=== PATIENT | female | born 1985 | race Caucasian/White ===

== ENCOUNTER 2017-05-02 13:10 | Outpatient (CLI) | payer MEDICAID ==
[~2017-05-02] VITALS: Ht 160 cm; Wt 93.1 kg
[2017-05-02 13:46] LABS: ADD SCAN DIFF NO
[2017-05-02 13:49] LABS: ABNORMAL IP MESSAGE 1; BASOPHILS % 0.3 % (0.0-2.0); EOSINOPHILS # 0.2 10^3/ul (0.0-0.5); EOSINOPHILS % 1.8 % (0.0-7.0); HEMATOCRIT 36.3 % (37.0-47.0); HEMOGLOBIN 11.7 g/dl (12.0-16.0); LYMPHOCYTES # 1.7 10^3/ul (0.8-2.9); LYMPHOCYTES % 15.8 % (15.0-51.0); MEAN CORPUSCULAR HEMOGLOBIN 27.7 pg (29.0-33.0); MEAN CORPUSCULAR HGB CONC 32.2 g/dl (32.0-37.0); MEAN CORPUSCULAR VOLUME 85.8 fl (82.0-101.0); MEAN PLATELET VOLUME 13.1 fl (7.4-10.4); MONOCYTE # 0.9 10^3/ul (0.3-0.9); MONOCYTES % 7.8 % (0.0-11.0); NEUTROPHILS % 73.5 % (39.0-77.0); PLATELET COUNT 155 10^3/UL (140-415); RED BLOOD COUNT 4.23 10^6/ul (4.20-5.40); RED CELL DISTRIBUTION WIDTH 14.8 % (11.5-14.5); WHITE BLOOD COUNT 10.9 10^3/ul (4.8-10.8)
--- NOTE | 2017-05-02 13:55 | RADRPT ---
PROCEDURE: OB ultrasound for biophysical profile CLINICAL INDICATION: Biophysical profile. . Hypertension TECHNIQUE: Multiple sonographic images of the pelvis were obtained. Transabdominal views are obta ined. COMPARISON: None FINDINGS: Single intrauterine gestation. Presentation: Cephalic. Placenta: Posterior No evidence of placental abruption. No evidence of placenta previa. breathing movement = 2/2 tone = 2/2 motion = 2/2 CORONA = 2/2 CORONA = 8.1 cm heart rate: 138 beats per minute IMPRESSION: Single intrauterine gestation. Biophysical profile 06/14 RPTAT: AADD .Edgar Aponte MD, MD Date Time Electronically viewed and signed by .Edgar Aponte MD, on 05/02/2017 13:54 .B/
--- NOTE | 2017-05-02 14:00 | RADRPT ---
PROCEDURE: Obstetrical ultrasound CLINICAL INDICATION: HIGH BLOOD PRESSURE TECHNIQUE: Multiple sonographic images of the pelvis were obtained. The images were reviewed on a PACS workstation. COMPARISON: None FINDINGS: The cervix is not well visualized. There is a single viable intrauterine gestation. Cardiac activity is present with 144 beats per minute. There is a vertex presentation. The placenta is posterior. There is no evidence for an abruption or placenta previa. There is a subjectively normal amount of amniotic fluid. Measurements were made in order to determine age. The results are as follows (cm): BPD =9.03 HC =31.98 AC =33.30 FL =6.84 Estimated gestational age by ultrasound of approximately 36 weeks, 2 days. The estimated date of delivery by ultrasound is 05/28/2017. Estimated gestational age by LMP of approximately 36 weeks, 4 days. The estimated date of delivery by LMP is 05/26/2017. EFW = 2966 grams (53rd percentile) IMPRESSION: Single viable intrauterine gestation of approximately 36 weeks, 2 days . The estimated date of delivery is 05/28/2017 . Dating by ultrasound is within 2 days of dating by LMP. Cephalic presentation. Estimated weight is in the 53rd percentile. RPTAT: EE Physician Juan José Date Time Electronically viewed and signed by Physician Juan José on 05/02/2017 13:59 VAHE
[2017-05-02 14:06] LABS: ALBUMIN 3.5 g/dl (3.3-4.9); ALBUMIN/GLOBULIN RATIO 1.34; BILIRUBIN,INDIRECT 0.1 mg/dl (0-1.1); BILIRUBIN,TOTAL 0.1 mg/dl (0.2-1.3); CALCIUM 8.7 mg/dl (8.4-10.2); CREATININE 0.66 mg/dl (0.44-1.00); POTASSIUM 3.8 mmol/L (3.5-5.1); TOTAL PROTEIN 6.1 g/dl (6.1-8.1); URIC ACID 5.4 mg/dl (3.1-7.9)
[2017-05-02 14:10] LABS: ADD UMIC YES; UR ASCORBIC ACID 20 mg/dL (NEGATIVE); UR BACTERIA FEW /HPF (NONE SEEN); UR BILIRUBIN (Dip) NEGATIVE (NEGATIVE); UR BLOOD (Dip) NEGATIVE (NEGATIVE); UR CLARITY CLOUDY (CLEAR); UR COLOR AMBER (YELLOW); UR GLUCOSE (Dip) NEGATIVE (NEGATIVE); UR KETONES (Dip) TRACE mg/dL (NEGATIVE); UR LEUKOCYTE ESTERASE (Dip) TRACE Leu/ul (NEGATIVE); UR MUCUS FEW /HPF (NONE SEEN); UR NITRITE (Dip) NEGATIVE (NEGATIVE); UR RBC 6 /HPF (0-5); UR SQUAMOUS EPITHELIAL CELL MANY /HPF (FEW); UR TOTAL PROTEIN (Dip) 1+ mg/dl (NEGATIVE); UR UROBILINOGEN (Dip) NEGATIVE (NEGATIVE)
[2017-05-02 14:12] VITALS: Ht 160 cm; Wt 93.1 kg
[2017-05-02] MEDS ORDERED: PRENAT PO (14:12)
[2017-05-02 14:13] VITALS: BP 124/69; PULSE 90; RESP 18
--- NOTE | 2017-05-02 15:20 | TRIAGE ---
OB Triage Datetime Report Generated by CPN: 05/02/2017 15:20 Datetime: 05/02/2017 14:30 Stage of : OB Triage Maternal Assessment Level of Consciousness: Fully Conscious Labor Evaluation Frequency: NONE Monitor Mode: External Resting Tone [place]: Relaxed Heart Rate FHR Baseline Rate: 145 Monitor Mode: External US Variability: Moderate 6-25 bpm Accelerations: 15X15 Decelerations: None Pain Assessment Pain Scale: 0 Pain Goal: 3 Vaginal Exam Membrane Status: Intact Vaginal Bleeding: None Datetime: 05/02/2017 14:09 Stage of : OB Triage Maternal Assessment Level of Consciousness: Fully Conscious DTR's/Clonus: DTRs 2+; No Clonus Headache: Denies Blurred Vision: No Respiratory Effort: Unlabored; Regular Rhythm; Equal Expansion Breath Sounds, Left: Clear and Equal Breath Sounds, Right: Clear and Equal Nausea/Vomiting: Denies RUQ Epigastric Pain: Denies Lower Extremities Edema: Bilateral Lower Extremities Degree: 2+ Upper Extremities Edema: None Degree: None Facial Edema: None Temperature Route: Axillary Fall Risk Assessment History of Falling: (0) No Secondary Diagnosis: (0) No Ambulatory Aid: (0) Bedrest/Nurse Assist IV Therapy: (0) No Gait: (0) Normal/Bedrest/Immobile Mental Status: (0) Oriented to Own Ability Fall Score: 0 Fall Risk Score Definition: No Risk: No action required Datetime: 05/02/2017 14:05 Time of Arrival: 05/02/2017 13:07 EGA: 36.1 Arrived By: Ambulatory Arrived From: Office Chief Complaint: PT SENT FROM CLINIC FOR EVAL. OF HBP Movement: Present Contractions: Denies/Absent Rupture of Membranes: Denies Vaginal Bleeding: None Vaginal Discharge: Denies Recent Sexual Intercouse: Denies Abdominal Trauma: Not Applicable Patient Complaints: None Time Provider Notified: 05/02/2017 13:07 Provider Notified: RENUKA Initial Plan: BPP/EFW/UA/CBC/CMP/ Datetime: 05/02/2017 13:22 Monitor Mode: External Monitor Mode: External US
--- NOTE | 2017-05-02 15:50 | QN ---
Documentation Comment iup 36 weeks no symptoms high BP vss exam wnl labs wnl a/p iup 36 weeks high BP resolved dc home CHARITY YOUNG MD May 02, 2017 15:50
== END 2017-05-02 15:26 | disposition home or self-care (01) ==
LOC: L-D 13:10 → OBT 13:10
PROVIDERS: ATTEND Obstetrics & Gynecology
DX: O26.893 Other specified pregnancy related conditions, third trimester (principal); R03.0 Elevated blood-pressure reading, without diagnosis of hypertension; Z3A.36 36 weeks gestation of pregnancy
CPT/HCPCS: 36415; 76815; 76818; 80053; 81001; 84560; 85025; Z7500; G0463

== ENCOUNTER 2017-05-04 09:59 | Outpatient (CLI) | payer MEDICAID ==
[~2017-05-04] VITALS: Ht 160 cm; Wt 93.2 kg
[~2017-05-04 09:59] MED LIST: PRENAT PO
[2017-05-04 10:14] VITALS: Ht 160 cm; Wt 93.2 kg
[2017-05-04 10:15] VITALS: BP 133/77; PULSE 93
[2017-05-04] MEDS ORDERED: AMOX500T PO (10:17)
[2017-05-04 11:11] LABS: SCRET 0.57 mg/dl (0.44-1.00)
== END 2017-05-04 12:40 | disposition home or self-care (01) ==
LOC: OBT 09:59 → L-D 10:00 → OBT 12:40
PROVIDERS: ATTEND Obstetrics & Gynecology
DX: O26.893 Other specified pregnancy related conditions, third trimester (principal); R03.0 Elevated blood-pressure reading, without diagnosis of hypertension; Z3A.36 36 weeks gestation of pregnancy
CPT/HCPCS: 82565; 82575; 84156; Z7500; G0463

== ENCOUNTER 2017-05-17 10:50 | Outpatient (CLI) | payer MEDICAID ==
--- NOTE | 2017-05-04 14:45 | PN ---
Triage Information Date/Time 05/04/2017 Weeks of Gestation 36 weeks and 3 days : 5 Para: 1 Diabetes: none Hypertention: induced Additional information 31 years old with IUP at 36 weeks and 3 days with Gestational HTN , here today for follow up of 24 hour urine protein and for NST. Has been seen about 2 days ago in Triage for r/o PIH with headache and blurred vision that currently resolved. Ruled out for PIH Today denies any GRANDE, Blurred vision or epigastric pain. Denies any LOF, vaginal bleeding or decreased movement, Objective Heart Rate: 140's Heart Rate Comments Cat 1 Contractions: None Assessment/Plan Patient's blood pressures 130's/70's She denied any symptoms 24 hour urine protein < 300 mg Currently no evidence of PIH Assessment IUP at 36 weeks and 3 days Gestational HTN FHT Cat 1 DC home Follow up with office in 2 days Strict PTL precaution and preclampsia precaution was given. LUIS ALBERTO ARMSTRONG MD May 04, 2017 14:45
[~2017-05-17] VITALS: Ht 160 cm; Wt 91.7 kg
[~2017-05-17 10:50] MED LIST changes: +AMOX500T PO
[2017-05-17 11:29] VITALS: BP 132/62; PULSE 72; RESP 17; Ht 160 cm; Wt 91.7 kg
[2017-05-17 11:43] LABS: ADD SCAN DIFF NO
[2017-05-17 11:57] LABS: ABNORMAL IP MESSAGE 1; BASOPHILS % 0.3 % (0.0-2.0); EOSINOPHILS # 0.2 10^3/ul (0.0-0.5); EOSINOPHILS % 2.4 % (0.0-7.0); HEMATOCRIT 36.6 % (37.0-47.0); LYMPHOCYTES # 1.8 10^3/ul (0.8-2.9); LYMPHOCYTES % 18.6 % (15.0-51.0); MEAN CORPUSCULAR HEMOGLOBIN 27.8 pg (29.0-33.0); MEAN CORPUSCULAR HGB CONC 32.8 g/dl (32.0-37.0); MEAN CORPUSCULAR VOLUME 84.9 fl (82.0-101.0); MEAN PLATELET VOLUME 13.5 fl (7.4-10.4); MONOCYTE # 0.7 10^3/ul (0.3-0.9); MONOCYTES % 7.7 % (0.0-11.0); NEUTROPHIL # 6.6 10^3/ul (1.6-7.5); NEUTROPHILS % 70.3 % (39.0-77.0); PLATELET COUNT 159 10^3/UL (140-415); RED BLOOD COUNT 4.31 10^6/ul (4.20-5.40); RED CELL DISTRIBUTION WIDTH 15.2 % (11.5-14.5); WHITE BLOOD COUNT 9.4 10^3/ul (4.8-10.8)
[2017-05-17 12:25] LABS: ADD UMIC YES; UR ASCORBIC ACID NEGATIVE (NEGATIVE); UR BACTERIA FEW /HPF (NONE SEEN); UR BILIRUBIN (Dip) NEGATIVE (NEGATIVE); UR BLOOD (Dip) NEGATIVE (NEGATIVE); UR CLARITY CLOUDY (CLEAR); UR COLOR AMBER (YELLOW); UR GLUCOSE (Dip) NEGATIVE (NEGATIVE); UR KETONES (Dip) TRACE mg/dL (NEGATIVE); UR LEUKOCYTE ESTERASE (Dip) NEGATIVE Leu/ul (NEGATIVE); UR MUCUS FEW /HPF (NONE SEEN); UR NITRITE (Dip) NEGATIVE (NEGATIVE); UR RBC 3 /HPF (0-5); UR SPECIFIC GRAVITY (Dip) 1.027 (1.003-1.030); UR SQUAMOUS EPITHELIAL CELL MANY /HPF (FEW); UR TOTAL PROTEIN (Dip) 1+ mg/dl (NEGATIVE); UR UROBILINOGEN (Dip) NEGATIVE (NEGATIVE)
--- NOTE | 2017-05-17 13:14 | PN ---
Triage Information Date/Time Weeks of Gestation 38 weeks : 5 Para: 1 Diabetes: none Hypertention: none Objective Vital Signs Date Time Temp Pulse Resp B/P Pulse Ox O2 Delivery O2 Flow Rate FiO2 05/17/17 11:29 97.8 72 17 132/62 Room Air Heart Rate: 130's Heart Rate Comments Category I Contractions: None Results/Medications Result Diagram: 05/17/17 1123 Results 24 hrs Laboratory Tests Test 05/17/17 11:00 05/17/17 11:23 Urine Color NENA Urine Clarity CLOUDY A Urine pH 5.0 Urine Specific [place] 1.027 Urine Ketones TRACE A Urine Nitrite NEGATIVE Urine Bilirubin NEGATIVE Urine Urobilinogen NEGATIVE Urine Leukocyte Esterase NEGATIVE Urine Microscopic RBC 3 Urine Microscopic WBC 6 H Urine Squamous Epithelial Cells MANY A Urine Calcium Oxalate Crystals FEW A Urine Bacteria FEW A Urine Mucus FEW A Urine Hemoglobin NEGATIVE Urine Glucose NEGATIVE Urine Total Protein 1+ H White Blood Count 9.4 Red Blood Count 4.31 Hemoglobin 12.0 Hematocrit 36.6 L Mean Corpuscular Volume 84.9 Mean Corpuscular Hemoglobin 27.8 L Mean Corpuscular Hemoglobin Concent 32.8 Red Cell Distribution Width 15.2 H Platelet Count 159 Mean Platelet Volume 13.5 H Neutrophils % 70.3 Lymphocytes % 18.6 Monocytes % 7.7 Eosinophils % 2.4 Basophils % 0.3 Nucleated Red Blood Cells % 0.0 Neutrophils # 6.6 Lymphocytes # 1.8 Monocytes # 0.7 Eosinophils # 0.2 Basophils # 0.0 Nucleated Red Blood Cells # 0.0 Assessment/Plan Pelvic Pressure Cervix closed D/C home NATALIIA GRAYSON MD May 17, 2017 13:14
--- NOTE | 2017-05-17 13:44 | TRIAGE ---
OB Triage Datetime Report Generated by CPN: 05/17/2017 13:43 Datetime: 05/17/2017 13:01 Labor Evaluation Frequency: 0 Monitor Mode: External Pattern: Normal: <= 5 Contractions in 10 Minutes Resting Tone [place]: Relaxed Heart Rate FHR Baseline Rate: 135 Monitor Mode: External US FHR Baseline Changes: No Baseline Change Variability: Moderate 6-25 bpm Accelerations: 15X15 Decelerations: None Category: Category I Pain Assessment Pain Scale: 0 Pain Presence: None/Denies Pain Type: N/A Datetime: 05/17/2017 12:58 Vaginal Exam Dilatation (cms): 0.0 Effacement (%): 0 Station: -3 Exam By: DR DELSHAD Vaginal Bleeding: None Cervix, Consistency: Moderate Cervix, Position: Posterior Datetime: 05/17/2017 12:00 Labor Evaluation Frequency: 0 Pattern: Normal: <= 5 Contractions in 10 Minutes Resting Tone [place]: Relaxed Heart Rate FHR Baseline Rate: 135 Monitor Mode: External US FHR Baseline Changes: No Baseline Change Variability: Moderate 6-25 bpm Accelerations: 15X15 Decelerations: None Category: Category I Pain Assessment Pain Scale: 0 Pain Presence: None/Denies Pain Type: N/A Datetime: 05/17/2017 11:34 Vaginal Exam Dilatation (cms): 0.0 Effacement (%): 0 Station: -3 Exam By: RIZWAN Vaginal Bleeding: None Cervix, Consistency: Moderate Cervix, Position: Posterior Datetime: 05/17/2017 11:10 Assessment Type: Triage Maternal Assessment Level of Consciousness: Fully Conscious DTR's/Clonus: DTRs 2+; No Clonus Headache: Denies Blurred Vision: No Respiratory Effort: Unlabored; Regular Rhythm Breath Sounds, Left: Clear and Equal Breath Sounds, Right: Clear and Equal Nausea/Vomiting: Denies RUQ Epigastric Pain: Denies Lower Extremities Edema: Bilateral Lower Extremities Degree: 1+ Upper Extremities Edema: None Degree: None Facial Edema: None Fall Risk Assessment History of Falling: (0) No Secondary Diagnosis: (0) No Ambulatory Aid: (0) Bedrest/Nurse Assist IV Therapy: (0) No Gait: (0) Normal/Bedrest/Immobile Mental Status: (0) Oriented to Own Ability Fall Score: 0 Fall Risk Score Definition: No Risk: No action required Datetime: 05/17/2017 11:07 Pain Assessment Pain Scale: 5 Pain Presence: Intermittent Pain Type: Cramping; Sharp Pain Location: Abdomen; Perineum Pain Relief Measures: Comfort Measures Datetime: 05/17/2017 10:45 Time of Arrival: 05/17/2017 10:45 EGA: 38.2 Arrived By: Ambulatory Arrived From: Home Chief Complaint: PT PRESENTS TO TRIAGE COMPLAINING OF SHARP PAIN IN VAGINA X3 DAYS AND LOWER ABDOM INAL CRAMPING. PATIENT REPORTS URINARY FREQUENCY WELL Movement: Present Contractions: Denies/Absent Rupture of Membranes: Denies Vaginal Bleeding: None Vaginal Discharge: Denies Recent Sexual Intercouse: Denies Abdominal Trauma: Not Applicable Patient Complaints: Cramping; Urinary Frequency Time Provider Notified: 05/17/2017 11:18 Provider Notified: DELSHAD Initial Plan: EFM/UA/CBC/VAGINAL EXAM Datetime: 05/04/2017 11:21 Stage of : OB Triage Datetime: 05/04/2017 11:20 Stage of : OB Triage Datetime: 05/04/2017 11:16 Labor Evaluation Frequency: 0 Monitor Mode: External Resting Tone [place]: Relaxed Heart Rate FHR Baseline Rate: 135 Monitor Mode: External US Variability: Moderate 6-25 bpm Accelerations: 15X15 Decelerations: None Category: Category I Pain Assessment Pain Scale: 0 Pain Presence: None/Denies Pain Type: N/A Pain Goal: 3 Pain Relief Measures: Comfort Measures Datetime: 05/04/2017 10:32 Stage of : OB Triage Datetime: 05/04/2017 10:18 Stage of : OB Triage Assessment Type: Triage Maternal Assessment Level of Consciousness: Fully Conscious DTR's/Clonus: DTRs 2+; No Clonus Headache: Denies Blurred Vision: No Respiratory Effort: Unlabored; Regular Rhythm; Equal Expansion Breath Sounds, Left: Clear and Equal Breath Sounds, Right: Clear and Equal Nausea/Vomiting: Denies RUQ Epigastric Pain: Denies Facial Edema: None Temperature Route: Axillary Fall Risk Assessment History of Falling: (0) No Secondary Diagnosis: (0) No Ambulatory Aid: (0) Bedrest/Nurse Assist IV Therapy: (0) No Gait: (0) Normal/Bedrest/Immobile Mental Status: (0) Oriented to Own Ability Fall Score: 0 Fall Risk Score Definition: No Risk: No action required Labor Evaluation Frequency: 0 Monitor Mode: External Pattern: Normal: <= 5 Contractions in 10 Minutes Resting Tone [place]: Relaxed Heart Rate FHR Baseline Rate: 135 Monitor Mode: External US Variability: Moderate 6-25 bpm Decelerations: None Category: Category II Pain Assessment Pain Scale: 0 Pain Presence: None/Denies Pain Type: N/A Pain Goal: 3 Pain Relief Measures: Comfort Measures Datetime: 05/04/2017 10:17 Time of Arrival: 05/04/2017 09:53 EGA: 36.3 Arrived By: Ambulatory Chief Complaint: follow up pih, 24 hour urine return, denies leaking or bleeding, occas uc's appr ox 2/hour Movement: Present Contractions: Occasional Rupture of Membranes: Denies Vaginal Bleeding: None Vaginal Discharge: Denies Recent Sexual Intercouse: Denies Abdominal Trauma: Not Applicable Patient Complaints: Cramping Time Provider Notified: 05/04/2017 10:33 Provider Notified: DELSHAD Initial Plan: monitor, 24 hours urine, creatine Datetime: 05/02/2017 14:09 Fall Score: 0 Fall Risk Score Definition: No Risk: No action required Datetime: 05/02/2017 14:05 EGA: 36.1
== END 2017-05-17 13:42 | disposition home or self-care (01) ==
LOC: OBT 10:50 → L-D 10:51 → OBT 13:42
PROVIDERS: ATTEND Obstetrics & Gynecology
DX: O13.3 Gestational [pregnancy-induced] hypertension without significant proteinuria, third trimester (principal); O26.893 Other specified pregnancy related conditions, third trimester; Z3A.36 36 weeks gestation of pregnancy
CPT/HCPCS: 36415; 81001; 85025; Z7500; G0463

== ENCOUNTER 2017-05-22 09:45 | Inpatient (IN) | payer MEDICAID ==
[~2017-05-22] VITALS: Ht 160 cm; Wt 92.7 kg
[~2017-05-22 09:45] MED LIST changes: -AMOX500T PO; +LIDOCAINE 2% (SDV) 5 ML INJ ONE
[2017-05-22 10:10] VITALS: Ht 160 cm; Wt 92.7 kg
[2017-05-22 10:11] VITALS: BP 126/76; PULSE 75; RESP 20
[2017-05-22] MEDS ORDERED: CEFAZOLIN 2 GM/50 ML (PMX) 50 ML IV SCH (10:30)
[2017-05-22] MEDS ORDERED: MISOPROSTOL 200 MCG TAB PR PRN ×2 (10:30→18:30)
[2017-05-22] MEDS ORDERED: CARBOPROST 250 MCG INJ IM PRN ×2 (10:30→18:30)
[2017-05-22] MEDS ORDERED: METHYLERGONOVINE 0.2 MG INJ IM PRN ×2 (10:30→18:30)
[2017-05-22] MEDS ORDERED: OXYTOCIN 30 UNITS/LR 500 ML IV PRN ×2 (10:30→18:30)
[2017-05-22] MEDS: LACTATED RINGER'S 1,000 ML IV SCH ×3 (10:39→18:23)
[2017-05-22 11:37] LABS: ADD SCAN DIFF NO
[2017-05-22 11:42] LABS: ABNORMAL IP MESSAGE 1; BASOPHILS % 0.4 % (0.0-2.0); EOSINOPHILS # 0.1 10^3/ul (0.0-0.5); EOSINOPHILS % 1.4 % (0.0-7.0); HEMATOCRIT 37.1 % (37.0-47.0); HEMOGLOBIN 11.9 g/dl (12.0-16.0); LYMPHOCYTES # 1.9 10^3/ul (0.8-2.9); LYMPHOCYTES % 18.5 % (15.0-51.0); MEAN CORPUSCULAR HEMOGLOBIN 27.5 pg (29.0-33.0); MEAN CORPUSCULAR HGB CONC 32.1 g/dl (32.0-37.0); MEAN CORPUSCULAR VOLUME 85.9 fl (82.0-101.0); MEAN PLATELET VOLUME 13.8 fl (7.4-10.4); MONOCYTE # 0.5 10^3/ul (0.3-0.9); MONOCYTES % 4.8 % (0.0-11.0); NEUTROPHIL # 7.4 10^3/ul (1.6-7.5); NEUTROPHILS % 74.3 % (39.0-77.0); PLATELET COUNT 142 10^3/UL (140-415); RED BLOOD COUNT 4.32 10^6/ul (4.20-5.40); RED CELL DISTRIBUTION WIDTH 15.3 % (11.5-14.5)
[2017-05-22] MEDS ORDERED: CITRIC ACID/NA CITRATE 30 ML CUP ONE (11:44)
[2017-05-22] MEDS ORDERED: FAMOTIDINE 20 MG INJ ONE (11:45)
[2017-05-22] MEDS ORDERED: CITRIC ACID/NA CITRATE 30 ML CUP PO PRN (12:00)
[2017-05-22] MEDS ORDERED: FAMOTIDINE 20 MG INJ IV ONE (12:00)
[2017-05-22] MEDS ORDERED: LACTATED RINGER'S 1,000 ML IV ONE (12:00)
[2017-05-22 12:02] LABS: INR 1.04; PROTIME 13.6 Sec (12.2-14.2); PT RATIO 1.1
[2017-05-22 12:03] LABS: PARTIAL THROMBOPLASTIN TIME 26.9 Sec (25.0-35.0)
[2017-05-22] MEDS ORDERED: ONDANSETRON 4 MG INJ IV STA (12:44)
[2017-05-22] MEDS ORDERED: ONDANSETRON 4 MG INJ ONE (12:46)
[2017-05-22] MEDS ORDERED: morphine SULFATE/PF (10 MG/10 ML) INJ ONE (12:52)
[2017-05-22] MEDS ORDERED: METOCLOPRAMIDE 10 MG INJ ONE (12:54)
[2017-05-22] MEDS ORDERED: EPHEDrine SULFATE 50 MG/5 ML SYG ONE (12:54)
[2017-05-22] MEDS ORDERED: PHENYLephrine (100 MCG/ML) 5ML SYG ONE (12:55)
[2017-05-22] MEDS ORDERED: DEXAMETHASONE 4 MG/ML 1 ML INJ ONE (12:56)
--- NOTE | 2017-05-22 13:51 | HP ---
Date/Time of Note Date/Time of Note DATE: 05/22/17 TIME: 13:48 OB - History Hx of Present Chief Complaint: scheduled Estimated Due Date: May 29, 2017 : 5 Para: 1 Spontaneous : 0 Therapeutic : 3 Care: Good Care Ultrasounds: Normal mid trimester US Obstetrical Complications: None Medical Complications: None Past Family/Social History * Past Medical, Surgical, Family and Obstetric Histories reviewed from chart. GBS Status: Negative OB Admission Exam Vital Signs Vital Signs Vital Signs Date Time Temp Pulse Resp B/P Pulse Ox O2 Delivery O2 Flow Rate FiO2 05/22/17 10:11 98.5 75 20 126/76 99 Room Air Physical Exam HEENT: WNL Heart: Rhythm Normal Lungs: Clear Abdomen: WNL Extremities: Normal Heart Rate: 130's Accelerations: Accelerations Present Decelerations: No Decelerations Last 72 hours Lab Results CBC & BMP 05/22/17 10:30 OB Assessment/Plan Reason for admission: section Other Assessment: at 39 weeks with previous Plan: Section NATALIIA GRAYSON MD May 22, 2017 13:50
[2017-05-22] MEDS ORDERED: LIDOCAINE 2%/EPI 30 ML INJ ONE (14:06)
[2017-05-22] MEDS ORDERED: OXYTOCIN 10 UNIT INJ ONE (14:16)
[2017-05-22] MEDS ORDERED: DIPHENHYDRAMINE 50 MG INJ IV PRN (17:30)
[2017-05-22] MEDS ORDERED: PROCHLORPERAZINE 10 MG INJ IV PRN (17:30)
[2017-05-22] MEDS ORDERED: ONDANSETRON 4 MG INJ IV PRN (17:30)
[2017-05-22] MEDS ORDERED: HYDROmorphONE 1 MG/ML SYG IV PRN (17:30)
[2017-05-22] MEDS ORDERED: NALOXONE (0.4 MG/ML) INJ IV PRN (17:30)
[2017-05-22] MEDS: KETOROLAC 30 MG INJ IV PRN (17:41)
[2017-05-22 18:15] VITALS: BP 124/57; PULSE 60; RESP 18
[2017-05-22] MEDS ORDERED: LANOLIN 7 GM TUBE TOP PRN (18:30)
[2017-05-22] MEDS: OXYTOCIN 30 UNITS/LR 500 ML IV SCH ×2 (18:31→23:02)
[2017-05-22 20:05] VITALS: BP 118/70; PULSE 59; RESP 19
[2017-05-22] MEDS: SENNA/DOCUSATE NA (8.6MG/50MG) TAB PO SCH (21:30)
[2017-05-23 00:04] VITALS: BP 118/70; PULSE 76; RESP 17
[2017-05-23] MEDS: LACTATED RINGER'S 1,000 ML IV SCH ×3 (03:09→18:23)
[2017-05-23] MEDS: KETOROLAC 30 MG INJ IV PRN ×2 (03:10→13:52)
[2017-05-23 03:50] VITALS: BP 129/58; PULSE 70; RESP 17
[2017-05-23 07:23] LABS: ADD SCAN DIFF NO
[2017-05-23 07:29] LABS: ABNORMAL IP MESSAGE 1; BASOPHILS % 0.4 % (0.0-2.0); EOSINOPHILS # 0.1 10^3/ul (0.0-0.5); EOSINOPHILS % 0.5 % (0.0-7.0); HEMATOCRIT 31.5 % (37.0-47.0); LYMPHOCYTES # 1.9 10^3/ul (0.8-2.9); LYMPHOCYTES % 17.6 % (15.0-51.0); MEAN CORPUSCULAR HEMOGLOBIN 27.9 pg (29.0-33.0); MEAN CORPUSCULAR HGB CONC 31.7 g/dl (32.0-37.0); MEAN CORPUSCULAR VOLUME 87.7 fl (82.0-101.0); MEAN PLATELET VOLUME 14.1 fl (7.4-10.4); MONOCYTE # 0.6 10^3/ul (0.3-0.9); NEUTROPHILS % 74.9 % (39.0-77.0); PLATELET COUNT 111 10^3/UL (140-415); RED BLOOD COUNT 3.59 10^6/ul (4.20-5.40); RED CELL DISTRIBUTION WIDTH 15.4 % (11.5-14.5); WHITE BLOOD COUNT 10.7 10^3/ul (4.8-10.8)
[2017-05-23 08:30] VITALS: BP 117/59; PULSE 87; RESP 16
--- NOTE | 2017-05-23 09:10 | OPR ---
DATE OF OPERATION: 05/22/2017 SURGEON: Dariel Choudhury MD POST ACUTE CARE NURSE: Sha Pringle MD ANESTHESIOLOGIST: Dc Guardado MD PREOPERATIVE DIAGNOSIS: at 39 weeks with previous section. POSTOPERATIVE DIAGNOSIS: at 39 weeks with previous section. OPERATION PERFORMED: Repeat low transverse section. ANESTHESIA: Epidural. OPERATIVE PROCEDURE: The Patient was taken to the OR, placed on the operating table. After successful epidural anesthesia was given. The patient was placed in supine position. The area was prepared and draped in the usual sterile fashion. Epidural anesthesia was assessed and was satisfactory. Using a scalpel, a Pfannenstiel incision was made about 2 fingerbreadths above the symphysis pubis. Incision was carried through the, the fascia was incised and extended bilaterally with Robbins scissors. Two Po's were used to separate the fascia from the muscle. The muscle was dissected in the midline to the peritoneum, the peritoneum entered with 2 Kellys and sagittal scissors. Upon entering the peritoneal cavity, using a scalpel, a small transverse incision was made in the lower segment of the uterus. Upon entering the uterine cavity, attention was directed to extend the incision bilaterally. Carefully the baby was delivered from cephalic position. Bulb suctioned clear of amniotic fluid. The baby was handed off to the team in attendance. 's were 8 and 9. The placenta was delivered without difficulty. The uterus was closed with #1 Monocryl continuous lock. Attention was turned to both ovaries and tubes, which looked normal. The peritoneal cavity was irrigated with warm saline. The peritoneum was closed #2-0 Vicryl continuous. The fascia was closed with #1 Vicryl continuous in 2 segments. Subcutaneous tissue was reapproximated with #2-0 plain, and the skin was closed kathryn. Estimated blood loss 600 mL. Complications none. All counts were correct. Dictated By: Dariel Choudhury MD /quyen/satya /Document#: [id number]
[2017-05-23] MEDS: SENNA/DOCUSATE NA (8.6MG/50MG) TAB PO SCH ×2 (13:53→21:51)
[2017-05-23 16:00] VITALS: BP 128/67; PULSE 78; RESP 18
[2017-05-23] MEDS: OXYCODONE/ACETAMINOPHEN (5/325) TAB PO PRN (18:53)
--- NOTE | 2017-05-23 19:50 | QN ---
Documentation Comment No complaint Afebrile VSS Abdomen soft Stable Continue prsent care. NATALIIA GRAYSON MD May 23, 2017 19:50
[2017-05-23 20:00] VITALS: BP 117/72; PULSE 82; RESP 20
[2017-05-23] MEDS: IBUPROFEN 800 MG TAB PO SCH (21:51)
[2017-05-24] MEDS: OXYCODONE/ACETAMINOPHEN (5/325) TAB PO PRN ×3 (02:08→20:03)
[2017-05-24] MEDS: LACTATED RINGER'S 1,000 ML IV SCH ×2 (02:23→10:23)
[2017-05-24 03:32] VITALS: BP 122/65; PULSE 72; RESP 20
[2017-05-24] MEDS: IBUPROFEN 800 MG TAB PO SCH ×3 (05:26→21:35)
[2017-05-24 08:10] VITALS: BP 120/81; PULSE 70; RESP 18
[2017-05-24] MEDS: SENNA/DOCUSATE NA (8.6MG/50MG) TAB PO SCH ×2 (09:31→20:43)
[2017-05-24 19:45] VITALS: BP 133/77; PULSE 82; RESP 19
--- NOTE | 2017-05-24 19:51 | QN ---
Documentation Comment No complaint Afebrile VSS Abdomen soft ND Stable Continue present care. NAATLIIA GRAYSON MD May 24, 2017 19:50
[2017-05-24 23:45] VITALS: BP 119/69; PULSE 66; RESP 17
[2017-05-25 04:00] VITALS: BP 124/57; PULSE 70; RESP 20
[2017-05-25] MEDS: IBUPROFEN 800 MG TAB PO SCH ×2 (05:42→14:00)
[2017-05-25 08:00] VITALS: BP 133/65; PULSE 64; RESP 19
[2017-05-25] MEDS ORDERED: IBUP800T25 PO (08:33)
--- NOTE | 2017-05-25 08:35 | DS ---
Date/Time of Note Date/Time of Note DATE: 05/25/17 TIME: 08:34 Obstetrical Discharge Record Final Diagnosis Final Diagnosis: Term delivered Section Section: Repeat Condition on Discharge Physical Assessment Voiding: Yes Bowel Movement: Yes Breast: Soft, non-tender Fundus: Firm Abdomen and Incision: Incision intact Calf Tenderness: No Patient Condition: Stable NATALIIA GRAYSON MD May 25, 2017 08:35
[2017-05-25] MEDS ORDERED: DIPHTH/TET/ACEL PERTUSS (ADULT) 0.5 ML VIAL IM* ONE (09:00)
[2017-05-25] MEDS: SENNA/DOCUSATE NA (8.6MG/50MG) TAB PO SCH (09:09)
[2017-05-25] MEDS: OXYCODONE/ACETAMINOPHEN (5/325) TAB PO PRN (09:10)
== END 2017-05-25 13:50 | disposition home or self-care (01) | DRG 766 ==
LOC: L-D 09:45 → PP1 18:13
PROVIDERS: ADMIT Obstetrics & Gynecology; ATTEND Obstetrics & Gynecology
PROC: 10D00Z1 Extraction of Products of Conception, Low, Open Approach (ICD-10-PCS; principal; 2017-05-22 12:30)
DX: O82 Encounter for cesarean delivery without indication (principal); O34.211 Maternal care for low transverse scar from previous cesarean delivery; Z3A.39 39 weeks gestation of pregnancy
CPT/HCPCS: 62319; 85025; 85610; 85730; 86592; 86850; 86900; 86901; 87340; 90715; 94760; 99464; J0690; J1100; J1885; J2274; J2370; J2405; J2590; J2765; J7120

== ENCOUNTER 2017-09-14 12:06 | Emergency (ER) | payer MEDICAID ==
[~2017-09-14] VITALS: Wt 79.1 kg
[~2017-09-14 12:06] MED LIST changes: +IBUP800T25 PO; -LIDOCAINE 2% (SDV) 5 ML INJ ONE
[2017-09-14] MEDS ORDERED: morphine 4 MG/ML VIAL IM STA (13:20)
[2017-09-14] MEDS ORDERED: ACETAMINOPHEN 325 MG TAB PO ONE (14:00)
--- NOTE | 2017-09-14 15:40 | RADRPT ---
Preliminary Report PROCEDURE: XR Lumbar Spine. CLINICAL INDICATION: Back pain. TECHNIQUE: AP, lateral and cone-down lateral view of the lumbar spine were obtained. COMPARISON: No prior studies are available for comparison. FINDINGS: There is a mild dextro curvature centered at L2-3. There are 5 lumbar vertebra. The sacrum and SI j oints are normal. The intervertebral disk spaces, neural canal and nerve root foramina are unremark able. The articular facets are normal. No disk bulge or herniations identified. There is no eviden ce of spondylolysis or spondylolisthesis. IMPRESSION: 1. Normal three-view LS spine series. RPTAT:AAJJ Physician Cal Date Time Electronically viewed and signed by Mark Escoto Physician on 09/14/2017 15:39 SCOTT/
[2017-09-14] MEDS ORDERED: CYCL-319 PO (15:44)
--- NOTE | 2017-09-14 15:46 | ERD ---
ER Documentation Chief Complaint Chief Complaint back pain HPI 31-year-old female presents with a chief complaint of back pain. Patient thinks that she might of pulled it 1 week ago. Has been worsening over the past week. Patient denies saddle paraesthesia, incontinence, urinary retention , RPND, or pain exacerbated by valsalva. Denies fever, chills, night sweats, weight loss, or increase symptoms at night. Patient also denies history of cardiovascular disease, disc herniation, cancer, HIV or IVDU. Patient has no other complaints and describes no other associated manifestations. Nursing notes have been reviewed and are consistent with history given. ROS All systems reviewed and are negative except as per history of present illness. Medications Home Meds Active Scripts Cyclobenzaprine Hcl* (Cyclobenzaprine Hcl*) 10 Mg Tablet, 10 MG PO TID, #15 TAB Prov:CHRISTINA FALLON PA-C 09/14/17 Ibuprofen* (Ibuprofen*) 800 Mg Tablet, 800 MG PO Q8, #30 TAB Prov:NATALIIA GRAYSON MD 05/25/17 Reported Medications Multivit/Min/Fol Ac/Iron/Pren* ( S*) 1 Tab Tab, 1 TAB PO DAILY, TAB 05/02/17 Allergies Allergies: Coded Allergies: No Known Allergy (Verified , 09/14/17) PMhx/Soc History of Surgery: Yes (Right leg , C SECTION ) Anesthesia Reaction: No Hx Neurological Disorder: No Hx Respiratory Disorders: No Hx Cardiac Disorders: No Hx Psychiatric Problems: No Hx Miscellaneous Medical Probl: Yes (MIGRAINE ) Hx Alcohol Use: No Hx Substance Use: No Hx Tobacco Use: No Smoking Status: Never smoker Physical Exam Vitals Physical Exam Const: well appearing 31 yo female in NAD Head: Atraumatic Eyes: Normal Conjunctiva ENT: Normal External Ears, Nose and Mouth. Neck: Full range of motion..~ No meningismus. Resp: Clear to auscultation bilaterally Cardio: Regular rate and rhythm, no murmurs. Posterior tibial pulses 2+ bilaterally. Abd: Soft, non tender, non distended. Normal bowel sounds Skin: No petechiae or rashes Back: No midline or flank tenderness. Full ROM. Pain with axial rotation bilaterally. Ext: No cyanosis, or edema Neur: Awake and alert. Ambulation WNL. NV intact. Psych: Normal Mood and Affect Results 24 hrs Current Medications Medications (Trade) Dose Ordered Sig/Yemi Route PRN Reason Start Time Stop Time Status Last Admin Dose Admin Morphine Sulfate (morphine) 3 mg ONCE STAT IM 09/14/17 13:20 09/14/17 13:33 DC Acetaminophen (Tylenol Tab) 650 mg ONCE ONCE PO 09/14/17 14:00 09/14/17 14:01 DC 09/14/17 13:43 Procedures/MDM Pt presents with CC of back pain. Urine negative. Due to possible ODALIS , XR was taken and given the following impression: 1. Normal three-view LS spine series. I have no suspicion for cauda equina, bony pathology or other NV compromise. Most likely dx is lumbar strain vs back pain of unknown etiology. DC medications - Flexeril Departure Diagnosis: Primary Impression: Back pain Back pain location: low back pain Chronicity: unspecified Back pain laterality: unspecified Sciatica presence: without sciatica Qualified Code: M54.5 - Low back pain without sciatica, unspecified back pain laterality, unspecified chronicity Condition: Stable Patient Instructions: Back Pain (Acute Or Chronic) Additional Instructions: Follow up with your PCP within the next 1-3 days for a more thorough evaluation and a possible referral to a specialist. Return the the emergency department immediately if symptoms worsen or change. If you have any questions regarding medications, ask your pharmacist or us before you leave. If any adverse reactions occur while taking your medications, discontinue the treatment and return to the emergency department immediately. Take your medications as directed, and complete the entire course of treatment. CHRISTINA FALLON PA-C Sep 14, 2017 15:46
[2017-09-14 15:58] VITALS: BP 124/64; PULSE 74; RESP 19
== END 2017-09-14 15:59 | disposition home or self-care (01) ==
LOC: FTE 12:06
DX: M54.5 Low back pain (principal)
CPT/HCPCS: 72100; Z7502; Z7610